=== PATIENT | female | born 1955 | race Caucasian/White ===

== ENCOUNTER → 2018-03-07 | Day surgery (SDC) | payer BC ==
[~2018-03-07] MED LIST: Propofol 200 MG/20 ML SDV IV ONE
[2018-03-07] MEDS: Lactated Ringers 1,000 ML IV SCH (06:43)
[2018-03-07 08:27] VITALS: BP 113/62
--- NOTE | 2018-03-07 08:58 | OR ---
DATE OF OPERATION: 03/07/2018 PREOPERATIVE DIAGNOSIS: 1. GASTROESOPHAGEAL REFLUX DISEASE. 2. HISTORY OF POLYPS. POSTOPERATIVE DIAGNOSIS: 1. GASTROESOPHAGEAL REFLUX DISEASE. 2. HISTORY OF POLYPS. SURGEON: Nikita Doll MD PROCEDURE: 1. EGD WITH BIOPSIES X4, MONI. POLYP REMOVAL X2. 2. FULL-LENGTH COLONOSCOPY. ANESTHESIA: SUPERINTENDENT SEED MILL. COMPLICATIONS: None. SPECIMEN: 1. Duodenal biopsy x1. 2. Antral biopsy x2. 3. MONI. 4. Fundal on antral polyps x2. FINDINGS: 1. Full-length EGD. 2. Duodenitis and gastritis. 3. Benign adenomatous polyps, antrum, and fundus. 4. Small hiatal hernia with spontaneous GERD. No esophagitis or Hassan's. 5. Colonoscopy to right colon. 6. Extremely poor bowel prep. RECOMMENDATIONS: The patient will be seen by Dr. Whelan in followup for her biopsies and treatment of her chronic reflux. Her colonoscopy showed no gross abnormalities, but this was very unreliable due to the extremely poor bowel prep. The patient may want to consider repeat colonoscopy in another date. INDICATIONS: The patient was going to see Dr. Whelan for some heartburn. He wondered have an EGD and a colonoscopy because she has had a history of colon polyps. DESCRIPTION OF PROCEDURE: The patient was prepped and draped and placed in the left lateral decubitus position. A lubricated Olympus gastroscope was inserted over a bit and advanced to cricopharyngeus area and easily intubated in the Esophagus. Esophageal line was benign in its entire course. The Z-line was crisp and sharp at 38 cm. There was a small hiatal hernia present with some spontaneous reflux, but no distal esophagitis, stricturing, ulceration, or Hassan's changes. The scope was advanced in the stomach through the pylorus into the second portion of the duodenum, which was normal. Duodenal bulb had some mild duodenitis. Biopsy was taken. Scope was brought back into the stomach, retroflexed the upper fundus and cardia were essentially unremarkable other than the patient's hernia seen from below. The patient does have some adenomatous polyps in the fundus and one in the antrum, we took two of these off with cold forceps, one in the fundus and one in the antrum. There was some very mild antral gastritis distal around the pylorus, two biopsies were obtained along with MONI test. Air was then suctioned and the scope removed without complication. A lubricated Olympus colonoscope was then inserted and advanced with some degree of caution to the right colon, the patient had an extremely poor bowel prep, very difficult to see, we had to suction repeatedly and unfortunately there was a lot of particulate food left in her stool. We were able to get past the hepatic flexure, but once in the right colon could not visualize or see the cecum due to the volume of stool present. Upon withdrawal, there were no gross abnormalities through the length of the colon including any polyps, mass, ulceration, bleeding sites, vascular abnormalities or signs of colitis. No significant diverticula were seen in the left colon. The patient's prep as stated already was very poor and/or many areas we cannot see at all and then some short stretches of clear colon. Attempts were made to suction, but it was very difficult as the scope kept plugging. No retroflexion of the rectum could be accomplished due to stool volume safely. Air was suctioned as best as possible. Scope was removed without complication. JAYNE/NATALIA /[id number]
== END ==
LOC: CC.SDS 06:26
PROVIDERS: ATTEND Family Medicine
DX: K31.7 Polyp of stomach and duodenum (principal); K31.9 Disease of stomach and duodenum, unspecified; K21.9 Gastro-esophageal reflux disease without esophagitis; K29.70 Gastritis, unspecified, without bleeding; K29.80 Duodenitis without bleeding; K44.9 Diaphragmatic hernia without obstruction or gangrene; Z12.11 Encounter for screening for malignant neoplasm of colon; I10 Essential (primary) hypertension; E11.9 Type 2 diabetes mellitus without complications; E55.9 Vitamin D deficiency, unspecified; E78.5 Hyperlipidemia, unspecified; M19.90 Unspecified osteoarthritis, unspecified site; N95.2 Postmenopausal atrophic vaginitis; Z79.4 Long term (current) use of insulin; Z79.899 Other long term (current) drug therapy; Z88.8 Allergy status to other drugs, medicaments and biological substances; Z86.010 Personal history of colon polyps; Z90.49 Acquired absence of other specified parts of digestive tract; Z90.710 Acquired absence of both cervix and uterus; Z90.89 Acquired absence of other organs; Z98.890 Other specified postprocedural states
CPT/HCPCS: 82962; 87081; J2704; J7120